=== PATIENT | male | born 1960 | race Caucasian/White ===

== ENCOUNTER 2017-01-01 05:33 | Day surgery (SDC) | payer BC ==
[~2017-01-01 05:33] MED LIST: ALEVE220 M4 PO; CIPRO500 M2 PO; COLACE100 M1 PO; FLAGYL500 M1 PO; IBUPROFEN200 M2 PO; MULTIVITAMINS1 EAC6 PO; NORCO 5-325 TA1 EACH PO; TYLENOL325 M2 PO; ZANTAC 7575 M1 PO; [UNRECOGNIZED DRUG - OTHER] PO
== END 2017-01-01 13:45 ==
LOC: SRG 05:33 → SHSB 05:36 → ORW 07:19 → PACU 09:29 → SHSB 11:05
PROC: 0WUF4JZ Supplement Abdominal Wall with Synthetic Substitute, Percutaneous Endoscopic Approach (ICD-10-PCS; principal; 2017-01-01)
PROC: 8E0W4CZ Robotic Assisted Procedure of Trunk Region, Percutaneous Endoscopic Approach (ICD-10-PCS; 2017-01-01)
DX: K43.2 Incisional hernia without obstruction or gangrene (principal); K40.20 Bilateral inguinal hernia, without obstruction or gangrene, not specified as recurrent; M19.90 Unspecified osteoarthritis, unspecified site; K21.9 Gastro-esophageal reflux disease without esophagitis; Z88.8 Allergy status to other drugs, medicaments and biological substances; Z79.899 Other long term (current) drug therapy; Z98.890 Other specified postprocedural states
CPT/HCPCS: C1781; J0690; J2765; J3010